=== PATIENT | male | born 1975 | race Asian ===

== ENCOUNTER 2022-05-31 12:26 | Inpatient (IN) | payer BC ==
[2022-05-31 13:43] VITALS: BMI 27.7
[2022-05-31] MEDS ORDERED: POLYETHYLENE GLYCOL (HEALTHYLAX) 3350 17 GM PACKET PO PRN (14:49)
[2022-05-31] MEDS ORDERED: ONDANSETRON *ODT* 4 MG TABLET SL PRN (14:49)
[2022-05-31] MEDS ORDERED: BISMUTH SUBSALICYLATE 262 MG/15 ML BTL PO PRN (14:49)
[2022-05-31] MEDS ORDERED: LORazepam 2 MG TABLET PO ONE (14:49)
[2022-05-31] MEDS ORDERED: LORazepam 1 MG TABLET PO PRN (14:49)
[2022-05-31] MEDS ORDERED: IBUPROFEN 400 MG TABLET (FP) PO PRN (14:49)
[2022-05-31] MEDS ORDERED: DICYCLOMINE HCL 10 MG CAPSULE PO PRN (14:49)
[2022-05-31] MEDS ORDERED: NALOXONE HCL (KLOXXADO) 8 MG SPRAY NS PRN (14:49)
[2022-05-31] MEDS ORDERED: hydrOXYzine PAMOATE 25 MG CAPSULE (FP) PO PRN (14:49)
[2022-05-31] MEDS ORDERED: ACETAMINOPHEN 325 MG TABLET (FP) PO PRN (14:49)
[2022-05-31] MEDS ORDERED: METHOCARBAMOL 500 MG TABLET PO PRN (14:49)
[2022-05-31] MEDS ORDERED: IBUPROFEN 600 MG TABLET (FP) PO PRN (14:49)
[2022-05-31] MEDS ORDERED: NALOXONE HCL 0.4 MG/ML VIAL IM PRN (14:49)
[2022-05-31] MEDS ORDERED: MAG HYDROX/AL HYDROX/SIMETH 30 ML UNIT-DOSE CUP PO PRN (14:49)
[2022-05-31] MEDS ORDERED: NICOTINE 10 MG CARTRIDGE (INHALER) IH PRN (14:49)
[2022-05-31] MEDS ORDERED: guaiFENesin 600 MG TABLET.ER (FP) PO PRN (14:49)
[2022-05-31] MEDS ORDERED: MAGNESIUM HYDROX 2400MG/30ML ORAL SUSPENSION 30 ML CUP PO PRN (14:49)
[2022-05-31] MEDS ORDERED: LOPERAMIDE HCL 2 MG CAPSULE PO PRN (14:49)
[2022-05-31] MEDS ORDERED: BENZONATATE 200 MG CAPSULE PO PRN (14:49)
[2022-05-31] MEDS ORDERED: BENZOCAINE/MENTHOL (CHLORASEPTIC ) LOZENGE MM PRN (14:49)
[2022-05-31] MEDS ORDERED: LORazepam 2 MG TABLET ONE (15:39)
[2022-05-31] MEDS ORDERED: ONDANSETRON *ODT* 4 MG TABLET ONE (15:39)
[2022-05-31] MEDS: PRENATAL VITAMINS W/ FOLIC ACID TABLET (FP) PO SCH (16:08)
[2022-05-31] MEDS: NICOTINE POLACRILEX 4 MG GUM BUC PRN (17:11)
[2022-05-31] MEDS: LORazepam 2 MG TABLET PO SCH ×2 (18:16→22:52)
[2022-05-31] MEDS ORDERED: traZODone HCL 50 MG TABLET (FP) PO SCH (22:00)
[2022-05-31] MEDS ORDERED: THIAMINE HCL 100 MG TABLET (FP) PO SCH (22:00)
[2022-05-31] MEDS ORDERED: MELATONIN 5 MG TABLETS PO SCH (22:00)
[2022-05-31] MEDS ORDERED: LISINOPRIL 5 MG TABLET PO ONE (23:35)
[2022-06-01] MEDS: LORazepam 2 MG TABLET PO SCH ×2 (05:50→10:43)
[2022-06-01] MEDS: NICOTINE POLACRILEX 4 MG GUM BUC PRN (09:07)
[2022-06-01 10:13] VITALS: BP 134/91; PULSE 112; RESP 19; TEMP 98.1
[2022-06-01] MEDS: PRENATAL VITAMINS W/ FOLIC ACID TABLET (FP) PO SCH (10:36)
[2022-06-01 13:22] LABS: ALBUMIN 4.1 g/dl (3.4-5.0); BLOOD UREA NITROGEN 5.9 mg/dL (7-18); CREATININE 0.8 mg/dL (0.55-1.3); HEMOGLOBIN 14.8 GM/dL (11.7-16.9); MCH 29.9 pg (25.7-33.7); MCHC 35.2 g/dl (32.0-35.9); MEAN PLT VOLUME 8.4 fl (7.5-11.1); PLATELET COUNT 129 10^3/uL (134-434); RBC 4.95 M/mm3 (4.00-5.60); RDW 15.9 % (11.9-15.9)
[2022-06-01 13:24] LABS: BILIRUBIN,TOTAL 2.7 mg/dL (0.2-1); CALCIUM 8.6 mg/dL (8.5-10.1); TOT PROT 7.8 g/dl (6.4-8.2)
[2022-06-02] MEDS ORDERED: LORazepam 1 MG TABLET PO SCH (05:00)
[2022-06-03] MEDS ORDERED: LORazepam 0.5 MG TABLET PO PRN
[2022-06-03] MEDS ORDERED: LORazepam 0.5 MG TABLET PO SCH (05:00)
[2022-06-04] MEDS ORDERED: LORazepam 0.5 MG TABLET PO ONE (05:00)
== END 2022-06-01 10:55 | disposition left against medical advice (07) | DRG 770 ==
LOC: YASAS 12:26 → Y6N 15:08
PROVIDERS: ADMIT Allergy & Immunology; ATTEND Surgery
PROC: HZ2ZZZZ Detoxification Services for Substance Abuse Treatment (ICD-10-PCS; principal; 2022-05-31)
DX: F10.230 Alcohol dependence with withdrawal, uncomplicated (principal); F12.20 Cannabis dependence, uncomplicated; F17.210 Nicotine dependence, cigarettes, uncomplicated; F19.282 Other psychoactive substance dependence with psychoactive substance-induced sleep disorder; F41.9 Anxiety disorder, unspecified; E78.5 Hyperlipidemia, unspecified; I10 Essential (primary) hypertension; E11.9 Type 2 diabetes mellitus without complications; Z79.84 Long term (current) use of oral hypoglycemic drugs; K74.60 Unspecified cirrhosis of liver
CPT/HCPCS: 36415; 80053; 80164; 82140; 82962; 85027; 86780; 93005; 93010; C9803-CS; Q0162; U0003; U0005